=== PATIENT | male | born 2000 | race Caucasian/White ===

== ENCOUNTER 2024-05-06 09:22 | Emergency (ER) | payer OTHER ==
[2024-05-06] MEDS: LIDOCAINE 1% INJ 10MG/ML (20 ML MDV) SQ ONE (09:50)
[2024-05-06] MEDS: DIPH,PERTUS(ACELL)TETVAC-LF 0.5 ML VIAL IM ONE (09:52)
[2024-05-06] MEDS: LIDOCAINE/EPINEPHR/TETRACAINE 5 ML BOTTLE TOPICAL ONE (10:06)
[2024-05-06 10:51] VITALS: RESP 18; TEMP 98.1
--- NOTE | 2024-05-06 10:58 | CT ---
EXAMINATION TYPE: CT brain cspine wo con, CT facial bones wo con DATE OF EXAM: 05/06/2024 10:39 AM COMPARISON: None. CLINICAL INDICATION: Male, 23 years old with history of pain, RIGHT SIDED JAW LACERATION (accession [id number]), RIGHT SIDED JAW LACERATION/ HIT IN HEAD (accession [id number]), pain Technique: Examination of the head was done in axial plane without intravenous contrast. Coronal and sagittal reconstructions performed. CT of the cervical spine was obtained in axial plane without intravenous injection of contrast mater ial. Coronal and sagittal reformatted images were obtained from the axial views for evaluation of f ractures, spinal alignment and canal. CT DLP: 789.9 mGycm, Automated exposure control for dose reduction was used. FINDINGS: Head: There is no evidence of acute intracranial hemorrhage, acute ischemic changes, mass, mass-effect, or extra-axial fluid collection. There is no effacement of cerebral sulci or basal subarachnoid cister ns. There is no hydrocephalus. There is no midline shift. Gomez-white matter distinction is preserv ed. No calvarial fracture. Mastoid air cells are well pneumatized. Facial bones: There is a laceration along the right side of the jaw. Underlying comminuted but nondisplaced fractur es involving the distal body of the right mandible. Some fracture lines extending to the mandibular t eeth. The TMJs remain intact. Pterygoid plates and zygomatic arches are intact. Mild mucosal thickening left maxillary sinus. Slight rightward nasal septal deviation. No acute facial bone fracture seen. The nasal bone appears intact. Orbits and globes appear intact. Cervical spine: The alignment of the cervical spine is normal on coronal and reformatted images. There is no cranial vertebral abnormality. Fracture of the cervical spine is not seen. There is no evidence of focal disk herniation. There is no central spinal canal stenosis. Sagittal and coronal reformatted images confirm above findings. COMBINED IMPRESSION: 1. Brain: No acute intracranial abnormality seen. 2. Facial bones: LACERATION ALONG THE RIGHT SIDE OF THE JAW WITH UNDERLYING NONDISPLACED, COMMINUTED FRACTURE OF THE DISTAL RIGHT MANDIBULAR BODY. 3. Cervical spine: No acute fracture or malalignment of the cervical spine. [facility], Workstation: [employer]URIEL, 05/06/2024 10:55 AM
[2024-05-06] MEDS: AMOXIC-POT CLAV 875-125MG 1 EACH TAB PO STA (11:18)
--- NOTE | 2024-05-06 11:26 | ED ---
General Adult HPI - General Chief complaint: Wound/Laceration Stated complaint: pipe to the face,laceration Time Seen by Provider: 05/06/24 09:46 Source: patient, RN notes reviewed Mode of arrival: ambulatory Limitations: no limitations - History of Present Illness Initial comments: 23-year-old male presents emergency department with chief complaint of right sided jaw laceration. Patient states that he was undoing binder that was holding down equipment and he states the bar came back striking him in the face. Patient is up-to-date on his tetanus. Patient states he is unsure if he lost consciousness. He complains of right-sided jaw facial pain with laceration. No visual disturbance no other complaints. - Related Data Previous Rx's Medication Instructions Recorded Amoxic-Pot Clav 875-125Mg 1 tab PO Q12HR #20 tab 05/06/24 [Augmentin 875-125] Allergies Allergy/AdvReac Type Severity Reaction Status Date / Time No Known Allergies Allergy Verified 05/06/24 09:31 Review of Systems ROS Statement: Those systems with pertinent positive or pertinent negative responses have been documented in the HPI. ROS Other: All systems not noted in ROS Statement are negative. Past Medical History Past Medical History: No Reported History History of Any Multi-Drug Resistant Organisms: None Reported Past Surgical History: No Surgical Hx Reported Past Psychological History: No Psychological Hx Reported Smoking Status: Never smoker Past Alcohol Use History: Rare Past Drug Use History: None Reported General Exam Limitations: no limitations General appearance: alert, in no apparent distress Head exam: Present: atraumatic, normocephalic, normal inspection Eye exam: Present: normal appearance, PERRL, EOMI. Absent: scleral icterus, conjunctival injection, periorbital swelling ENT exam: Present: mucous membranes moist, other (There is a 5 cm laceration right mandibular region). Absent: normal oropharynx (Chipped teeth noted, no laceration) Neck exam: Present: normal inspection, full ROM. Absent: tenderness, meningismus, lymphadenopathy Respiratory exam: Present: normal lung sounds bilaterally. Absent: respiratory distress, wheezes, rales, rhonchi, stridor Cardiovascular Exam: Present: regular rate, normal rhythm, normal heart sounds. Absent: systolic murmur, diastolic murmur, rubs, gallop, clicks Course Vital Signs 05/06/24 05/06/24 05/06/24 09:27 10:49 11:34 Temperature 98.2 F 98.1 F 98.1 F Pulse Rate 58 L 51 L 62 Respiratory 16 18 18 Rate Blood Pressure 155/87 129/69 134/80 O2 Sat by Pulse 100 100 100 Oximetry Procedures - Laceration Laceration #1 Consent Obtained: verbal consent Indication: laceration Site: face Size (cm): 5 Description: linear Depth: simple, single layer Anesthetic Used: lidocaine 1%, without epi Anesthesia Technique: local infiltration Amount (mls): 3 Pre-repair: wound explored, irrigated extensively, deep structures intact Type of Sutures: nylon Size of Sutures: 6-0 Number of Sutures: 5 Technique: simple, interrupted Patient Tolerated Procedure: well, no complications Medical Decision Making - Medical Decision Making Was pt. sent in by a medical professional or institution (, PA, MRP CONTROLLER, urgent care, hospital, or residential...) When possible be specific @ -No Did you speak to anyone other than the patient for history (EMS, parent, family, police, friend...)? What history was obtained from this source @ -No Did you review nursing and triage notes (agree or disagree)? Why? @ -I reviewed and agree with nursing and triage notes Were old charts reviewed (outside hosp., previous admission, EMS record, old EKG, old radiological studies, urgent care reports/EKG's, residential records)? Report findings @ -No old charts were reviewed Differential Diagnosis (chest pain, altered mental status, abdominal pain women, abdominal pain men, vaginal bleeding, weakness, fever, dyspnea, syncope, headache, dizziness, GI bleed, back pain, seizure, CVA, palpatations, mental health, musculoskeletal)? @ -Mandibular fracture, facial contusion, closed head injury, facial laceration EKG interpreted by me (3pts min.). @ -None X-rays interpreted by me (1pt min.). @ -None done CT interpreted by me (1pt min.). @ -CT brain, C-spine, facial bones showing evidence of mandibular body fracture comminuted, no intracranial hemorrhage no cervical fracture U/S interpreted by me (1pt. min.). @ -None done What testing was considered but not performed or refused? (CT, X-rays, U/S, labs)? Why? @ -None What meds were considered but not given or refused? Why? @ -None Did you discuss the management of the patient with other professionals (professionals i.e. , PA, MRP CONTROLLER, lab, RT, psych nurse, social work nurse, enforcement officer, teacher, articulation officer, caser)? Give summary @ -Oral surgery for follow-up in which they will see the patient at noon today. Was smoking cessation discussed for >3mins.? @ -No Was critical care preformed (if so, how long)? @ -No Were there social determinants of health that impacted care today? How? (Homelessness, low income, unemployed, alcoholism, drug addiction, granados sportation, low edu. Level, literacy, decrease access to med. care, [facility], rehab)? @ -No Was there de-escalation of care discussed even if they declined (Discuss DNR or withdrawal of care, Hospice)? DNR status @ -No What co-morbidities impacted this encounter? (DM, HTN, Smoking, COPD, CAD, Cancer, CVA, ARF, Chemo, Hep., AIDS, mental health diagnosis, sleep apnea, morbid obesity)? @ -None Was patient admitted / discharged? Hospital course, mention meds given and route, prescriptions, significant lab abnormalities, going to OR and other pertinent info. @Patient had laceration. Patient has mandibular fracture was given Augmentin tetanus updated. Patient will follow-up with oral surgery today. Undiagnosed new problem with uncertain prognosis? @ -No Drug Therapy requiring intensive monitoring for toxicity (Heparin, Nitro, Insulin, Cardizem)? @ -No Were any procedures done? @ -No Diagnosis/symptom? @ -Mandibular fracture, facial laceration Acute, or Chronic, or Acute on Chronic? @ -Acute Uncomplicated (without systemic symptoms) or Complicated (systemic symptoms)? @ -Uncomplicated Side effects of treatment? @ -No Exacerbation, Progression, or Severe Exacerbation? @ -No Poses a threat to life or bodily function? How? (Chest pain, [place], [place], pneumonia, PE, COPD, DKA, ARF, appy, cholecystitis, CVA, Diverticulitis, Homicidal, Suicidal, threat to staff... and all critical care pts) @ -No Disposition Clinical Impression: Fracture, mandible, Laceration of face Disposition: HOME SELF-CARE Condition: Stable Instructions (If sedation given, give patient instructions): Jaw Fracture in Adults (ED) Additional Instructions: Please return to the Emergency Department if symptoms worsen or any other concerns. Prescriptions: Amoxic-Pot Clav 875-125Mg [Augmentin 875-125] 1 tab PO Q12HR #20 tab Is patient prescribed a controlled substance at d/c from ED?: No Referrals: Klaus Cash DO [Primary Care Provider] - 1-2 days Les Santana DDS [STAFF PHYSICIAN] - 1-2 days Time of Disposition: 11:26
[2024-05-06 11:36] VITALS: BP 134/80; PULSE 62
== END 2024-05-06 11:36 | disposition home or self-care (01) ==
LOC: EC 09:22
DX: S01.81XA Laceration without foreign body of other part of head, initial encounter (principal); Z23 Encounter for immunization; W22.8XXA Striking against or struck by other objects, initial encounter
CPT/HCPCS: 72125; 70486; 70450; 90715; 99284; 12013; 90471; J2003